=== PATIENT | female | born 1990 | race Caucasian/White ===

== ENCOUNTER 2016-09-16 01:09 | Emergency (ER) | payer MEDICAID ==
[~2016-09-16] VITALS: Ht 165.1 cm; Wt 81.4 kg
[~2016-09-16 01:09] MED LIST: AMOXICILLIN 8751 TAB PO; ORTHO TRI-CYCLE1 TA2 PO
[2016-09-16 01:17] VITALS: BP 120/86; TEMP 97.9
[2016-09-16] MEDS ORDERED: PRENATAL FORMU1 EAC3 (01:55)
[2016-09-16 02:00] VITALS: PULSE 76
== END 2016-09-16 02:02 | disposition home or self-care (01) ==
LOC: COL.ER 01:09
DX: O99.89 Other specified diseases and conditions complicating pregnancy, childbirth and the puerperium (principal); R06.4 Hyperventilation; R10.84 Generalized abdominal pain; Z3A.13 13 weeks gestation of pregnancy